=== PATIENT | male | born 2000 | race Caucasian/White ===

== ENCOUNTER 2022-07-09 16:57 | Emergency (ER) | payer MEDICAID, SELFPAY ==
[2022-07-09 17:11] VITALS: BP 134/83; PULSE 98; RESP 21; TEMP 36.8; O2SAT 98; BMI 33.0
[2022-07-09 18:03] LABS: Basophils Percent Auto 0.3 % (0.0-3.0); Eosinophils Percent Auto 1.3 % (0.0-7.0); Hemoglobin* 15.3 gm/dL (13.5-17.5); Lymphocytes Percent Auto 36.6 % (20-44); Mean Corpuscular HGB Conc 34 gm/dL (32-36); Mean Corpuscular Hemoglobin 31 pg (26-34); Mean Corpuscular Volume 90 fL (80-100); Neutrophils Percent Auto 44.8 % (42.0-72.0); Platelet Count* 193 K/uL (140-440); RDW Coefficient of Variation % 12.6 % (11.5-15.5); Red Blood Count 4.99 m/uL (4.30-5.90); White Blood Count* 3.93 K/uL (4.50-11.00)
[2022-07-09 18:09] LABS: Slide Review Reflex No
[2022-07-09 18:30] LABS: Chloride* 106 mmol/L (96-114); Sodium* 137 mmol/L (135-149)
[2022-07-09 18:31] LABS: Potassium* 3.9 mmol/L (3.6-5.1)
[2022-07-09 18:33] LABS: Blood Urea Nitrogen* 14 mg/dL (5-24); Carbon Dioxide* 26 mmol/L (20-32); Est. Creatinine Clearance* 119.64; Estimated Glomerular Filt Rate 109 ml/min
[2022-07-09 18:34] LABS: Calcium* 8.8 mg/dL (8.4-10.6); Glucose* 106 mg/dL (60-115)
[2022-07-09 18:50] LABS: PCR FLU A Negative PCR FLU A (Negative); PCR FLU B Negative PCR FLU B (Negative); PCR RSV Negative PCR RSV (Negative)
[2022-07-09 19:06] LABS: SARS PCR* POSITIVE SARS-CoV-2 (Negative)
[2022-07-09 19:20] VITALS: BP 113/72; PULSE 81; RESP 18; O2SAT 98
--- NOTE | 2022-07-09 19:33 | ED.GENADULT ---
HPI - General Adult General Chief complaint: Cough Stated complaint: Covid+, Dehydrated Time Seen by Provider: 07/09/22 19:27 Source: patient Mode of arrival: ambulatory Limitations: no limitations History of Present Illness HPI narrative: 22-year-old male coming in today not feeling well. He feels tired and achy. Unclear if he has had fevers. No vomiting, chest pain or abdominal pain. He did take an at-home COVID test yesterday and it was positive. He was seen in the clinic today for a follow-up and he was told that his creatinine was elevated at 1.2 and so he was told to come to the ER. Patient does have a history of asthma. Does not feel short of breath. Denies cough. Related Data Previous Rx's Medication Instructions Recorded nirmatrelvir 300 mg (150 mg See Rx Instructions PO .COMPLEX 07/09/22 x2)-ritonavir 100 mg tablet,dose #30 ea pack(EUA) (Paxlovid) Allergies Allergy/AdvReac Type Severity Reaction Status Date / Time No Known Drug Allergies Allergy Verified 07/09/22 17:15 Review of Systems Status of ROS: Reports: 10 or more systems reviewed and unremarkable except as noted in History and below Exam Narrative: Exam Narrative: Well-nourished well-developed patient in no acute distress. Alert and oriented. Answers questions appropriately. Mood and affect are appropriate. Thoughts are goal oriented and rational. No tangential or magical thinking noted. Patient speaks in full sentences without needing to catch their breath. HEENT: Normocephalic atraumatic. Pupils are equally round reactive to light. Extraocular muscles are intact. Conjunctivae are moist without any icterus noted. Moist mucous membranes. Posterior pharynx is normal. Neck is soft without any lymphadenopathy or thyromegaly. No masses are appreciated. Cardiovascular: Heart is regular rate and rhythm S1 and S2 are present without any murmurs. Lungs: Clear to auscultation bilaterally no wheezes rhonchi or rales are appreciated. Patient takes deep breaths without any discomfort. Abdomen: Soft and nontender nondistended with normal bowel sounds. No guarding or rebound. No masses or organomegaly appreciated. Extremities: Bilateral lower extremities are without edema. Skin: Well perfused without any obvious rashes. Const: Vital Signs, click to edit/add: Vital Signs - 24 hr 07/09/22 17:11 07/09/22 19:20 Temperature 98.3 F Pulse Rate [Pulse Oximeter] 98 81 Respiratory Rate 21 18 Blood Pressure [Ri t Upper Arm] 134/83 113/72 Pulse Oximetry 98 98 Oxygen Delivery Me thod Room Air Room Air Course Course Hospital Course: Patient received a L of normal saline and did feel better. His lab work was unremarkable. His creatinine was normal at 1.0. COVID positive. Vital Signs Vital signs: Initial Vital Signs Temperature 98.3 F 07/09/22 17:11 Temperature Source Temporal Artery Scan 07/09/22 17:11 Pulse Rate 98 07/09/22 17:11 Pulse Rhythm 07/09/22 17:11 Pulse Strength 3+ Normal 07/09/22 17:11 Respiratory Rate 21 07/09/22 17:11 Blood Pressure 134/83 07/09/22 17:11 Blood Pressure Mean 100 07/09/22 17:11 Pulse Oximetry 98 07/09/22 17:11 Oxygen Delivery Method 07/09/22 17:11 Vital Signs Temperature 98.3 F 07/09/22 17:11 Pulse Rate 98 07/09/22 17:11 Respiratory Rate 21 07/09/22 17:11 Blood Pressure 134/83 07/09/22 17:11 Pulse Oximetry 98 07/09/22 17:11 Oxygen Delivery Method 07/09/22 17:11 Temperature 98.3 F 07/09/22 17:11 Pulse Rate 81 07/09/22 19:20 Respiratory Rate 18 07/09/22 19:20 Blood Pressure 113/72 07/09/22 19:20 Pulse Oximetry 98 07/09/22 19:20 Oxygen Delivery Method 07/09/22 19:20 Medical Decision Making [facility] Narrative Medical decision making narrative: 22-year-old male with COVID-19. Given that he does have a history of asthma we will go ahead treated with Paxlovid. Lab Data Lab results reviewed: Yes I reviewed the patient's lab results Labs: Lab Results 07/09/22 07/09/22 07/09/22 Range/Units 17:55 17:55 17:55 WBC 3.93 L (4.50-11.00) K/uL RBC 4.99 (4.30-5.90) m/uL Hgb 15.3 (13.5-17.5) gm/dL Hct 45.0 (37.0-53.0) % MCV 90 (80-100) fL MCH 31 (26-34) pg MCHC 34 (32-36) gm/dL RDW Coeff of Lan 12.6 (11.5-15.5) % Plt Count 193 (140-440) K/uL Neut % (Auto) 44.8 (42.0-72.0) % Lymph % (Auto) 36.6 (20-44) % [place] % (Auto) 17.0 H (0.0-11.0) % Eos % (Auto) 1.3 (0.0-7.0) % Baso % (Auto) 0.3 (0.0-3.0) % Neut # (Auto) 1.80 (1.7-7.0) K/uL Lymph # (Auto) 1.40 (0.90-2.90) K/uL [place] # (Auto) 0.70 (0.00-0.90) K/UL Eos # (Auto) 0.10 (0.00-0.50) K/uL Baso # (Auto) 0.00 (0.00-0.30) K/uL Sodium 137 (135-149) mmol/L Potassium 3.9 (3.6-5.1) mmol/L Chloride 106 (96-114) mmol/L Carbon Dioxide 26 (20-32) mmol/L BUN 14 (5-24) mg/dL Creatinine 1.0 (0.5-1.5) mg/dL Estimated Creat Clear 119.64 Estimated GFR 109 ml/min Glucose 106 (60-115) mg/dL Calcium 8.8 (8.4-10.6) mg/dL SARS-CoV-2 (PCR) POSITIVE SARS-CoV-2 A (Negative) Influenza Type A (PCR) Negative PCR FLU A (Negative) Influenza Type B (PCR) Negative PCR FLU B (Negative) RSV (PCR) Negative PCR RSV (Negative) Discharge Plan Discharge Clinical Impression: COVID-19 Patient Disposition: Home, Self-Care Condition: Stable Additional Instructions: Make sure to stay well hydrated and rest as much as you need to. You should stay away from people for 10 days starting on the 1st day your symptoms started or until you are completely asymptomatic, but you should continue to wear mask around other people for 10 days. Prescriptions: New Paxlovid (EUA) 300 mg (150 mg x 2)-100 mg tablets,dose pack See Rx Instructions .ROUTE .COMPLEX Qty: 30 0RF Rx Instructions: take TWO 150 mg tablets of nirmatrelvir with ONE 100 mg tablet of ritonavir twice daily for 5 days Follow Up/Referrals: Jose Guadalupe Selby MD [Primary Care Provider] - Stand Alone Forms: [employer] Info Instructions
== END 2022-07-09 19:56 | disposition home or self-care (01) ==
PROVIDERS: Emergency Provider Family Medicine; PCP Family Medicine
DX: U07.1 COVID-19 (principal)
CPT/HCPCS: 36415; 80048; 85025; 87502; 87634; 87635; 99283; 99284